=== PATIENT | male | born 1985 | race Caucasian/White ===

== ENCOUNTER 2019-01-24 17:03 | Emergency (ER) | payer MEDICAID ==
[~2019-01-24] VITALS: Ht 185.4 cm; Wt 106.6 kg
[2019-01-24 17:09] VITALS: BP_SYST 125
--- NOTE | 2019-01-24 17:56 | NUR ---
Patient to ER bed 4 to gown for evaluation. Side rails up. Report given to Jalen JIMENEZ.
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
[2019-01-24] MEDS ORDERED: DIPH-TET-PERTUS Vaccine 0.5 ML VIAL (ADACEL) I.M. ONE (18:15)
[2019-01-24] MEDS ORDERED: BACITRACIN/POLYMYXIN B SULFATE 30 GM TOPICAL OINT. TP SCH (18:45)
--- NOTE | 2019-01-24 19:10 | NUR ---
Report given to TONY Tabor. No acute distress noted.
[2019-01-24] MEDS ORDERED: BACITRACIN 1 GM OINT TP ONE (19:13)
[2019-01-24 19:20] VITALS: BP_SYST 120
--- NOTE | 2019-01-24 19:20 | NUR ---
Patient given written and verbal discharge instructions and verbalizes understanding. ER MD discussed with patient the results and treatment provided. Patient in stable condition. ID arm band removed. Rx of zero given. Patient educated on pain management and to follow up with PMD. Pain Scale 0/10. Opportunity for questions provided and answered. Medication side effect fact sheet provided.
== END 2019-01-24 19:20 ==
LOC: SED 17:03 → EDBD 17:03 → SED 19:20
DX: S50.11XA Contusion of right forearm, initial encounter (principal); R03.0 Elevated blood-pressure reading, without diagnosis of hypertension; V43.52XA Car driver injured in collision with other type car in traffic accident, initial encounter; Y93.89 Activity, other specified; Y92.410 Unspecified street and highway as the place of occurrence of the external cause; Y99.8 Other external cause status
CPT/HCPCS: 90715; 99283